=== PATIENT | male | born 1940 | race African-American/Black ===

== ENCOUNTER 2017-04-30 06:50 | Outpatient (CLI) | payer OTHER ==
[~2017-04-30] VITALS: Ht 172.7 cm; Wt 82.6 kg
[2017-04-30] VITALS (12 sets, daily range): BP systolic 119–161; BP diastolic 68–84
[2017-04-30 07:30] LABS: HEMATOCRIT 38.8 % (39.0-53.0); HEMOGLOBIN 12.7 g/dL (13.0-17.5); RED BLOOD COUNT 4.06 x10^6/uL (4.30-5.70); RED CELL DISTRIBUTION WIDTH 13.5 % (11.5-14.5); WHITE BLOOD COUNT 5.8 x10^3/uL (4.0-11.0)
[2017-04-30] MEDS ORDERED: IV NORMAL SALINE 1000ML BAG 1,000 ML IV SCH (07:30)
[2017-04-30] MEDS ORDERED: GLIP10TA13 PO (07:33)
[2017-04-30] MEDS ORDERED: ASCO500T2 PO (07:33)
[2017-04-30] MEDS ORDERED: METO-269 PO (07:33)
[2017-04-30] MEDS ORDERED: INSU100I13 SQ (07:33)
[2017-04-30] MEDS ORDERED: CHOL100014 PO (07:33)
[2017-04-30] MEDS ORDERED: INSU100C4 SQ (07:33)
[2017-04-30] MEDS ORDERED: AMLO5TAB2 PO (07:33)
[2017-04-30] MEDS ORDERED: ATORVASTATIN CA80 MG PO (07:33)
[2017-04-30] MEDS ORDERED: ALLO100T PO (07:33)
[2017-04-30] MEDS ORDERED: LISI1TAB5 PO (07:33)
[2017-04-30] MEDS ORDERED: ASPI81TA50 PO (07:33)
[2017-04-30 07:39] LABS: CALCIUM 9.3 mg/dL (8.5-10.1); CREATININE 1.9 mg/dL (0.7-1.3); GFR 41.7; POTASSIUM 5.1 mmol/L (3.5-5.1)
[2017-04-30 07:46] LABS: INR 1.1 (0.8-1.1); PROTHROMBIN TIME PATIENT 13.4 SEC (11.7-14.0)
[2017-04-30] MEDS ORDERED: LIDOCAINE 2% 20 ML VIAL. ONE (09:22)
[2017-04-30] MEDS ORDERED: IODIXANOL 320 MG/ML 100 ML VIAL. ONE (09:23)
[2017-04-30] MEDS ORDERED: fentaNYL PF VIAL 100 MCG/2 ML VIAL ONE (09:39)
[2017-04-30] MEDS ORDERED: MIDAZOLAM HCL/PF 2 MG/2 ML VIAL. ONE (09:39)
--- NOTE | 2017-04-30 09:40 | PDOC ---
MODERATE SEDATION ASSESSMENT RISKS/ALTERNATIVES Risks/Alternatives Risks and alternatives of this type of sedation and procedure discussed with: RISK/ALTERNATIVES: Patient H & P ON CHART H & P H & P on chart and reviewed for co-morbid conditions and appropriate labs. H&P ON CHART: Yes STATUS PREG STATUS ASSESSED: N/A MEDS/ALLERGIES REVIEWED Meds/Allergies Reviewed Medications and Allergies including time and route of recently administered narcotics and sedatives. MEDS/ALLERGIES REVIEWED: Yes ASA RATING ASA RATING: II AIRWAY ASSESSMENT Airway Assessment Airway patency, oral function limitations, presence of caps, crowns, dentures, partials, and ability to extend neck assessed. AIRWAY ASSESSMENT: Yes MALLAMPATI SCORE MALLAMPATI SCORE: II PRE-SEDATION ASSESSMENT PRE-SEDATION ASSESSMENT: Yes JEWEL SHARIF MD Apr 30, 2017 09:40
[2017-04-30] MEDS ORDERED: IODIXANOL 320 MG/ML 100 ML VIAL. IART ONE (09:45)
[2017-04-30] MEDS ORDERED: fentaNYL PF VIAL 100 MCG/2 ML VIAL IV ONE (09:45)
[2017-04-30] MEDS ORDERED: MIDAZOLAM HCL/PF 2 MG/2 ML VIAL. IV ONE (09:45)
[2017-04-30] MEDS ORDERED: LIDOCAINE 2% 20 ML VIAL. IJ ONE (09:45)
[2017-04-30] MEDS ORDERED: CONTRAST GIVEN MC PRN (10:00)
[2017-04-30] MEDS ORDERED: CLOPIDOGREL BISULFATE 75 MG TABLET ONE (10:21)
[2017-04-30] MEDS ORDERED: CLOPIDOGREL BISULFATE 75 MG TABLET PO ONE (10:30)
[2017-04-30] MEDS ORDERED: CLOP75TA57 PO (13:46)
[2017-04-30] MEDS ORDERED: RANO500T2 PO (13:46)
--- NOTE | 2017-05-01 09:57 | CARD ---
APPROVED REPORT Procedure(s) performed: MODERATE SEDATION: 60 MIN HISTORY The patient is a 76 year-old male with a history of : previous CHF, previous CABG (The CABG date was ). INDICATION The indication(s) include : positive stress test. PROCEDURE NARRATIVE The patient was brought electively to the cardiac catheterization lab. A timeout was performed confi rming the patient's name, date of , procedure, and site of procedure. All necessary personnel w ere wearing the appropriate protective equipment and radiation monitor devices. After explaining the risks and benefits of the procedure and alternatives, informed consent was obtained. (See nursing no rainer for medications administered). The right groin was sterilely prepped and draped in the usual fas hion. The right groin was infiltrated with 20 mL of 2% lidocaine for subcutaneous anesthesia. A 6 F sheath was inserted into the right femoral artery without difficulty via the modified seldinger techn ique with an 18G needle and a J-tipped guidewire. Hemostasis was achieved with an Angioseal device. HEMODYNAMICS: LVEDP 12 mm Hg AO: 150/70 *No gradient on LV to aortic pullback. LEFT VENTRICULOGRAM: Deferred due to renal insufficiency. CORONARY ANGIOGRAPHY: LM is a large caliber vessel with mild ectasia. LAD is a large caliber vessel with mild diffuse disease, with focal mid calcified 60% and 70% stenose s, and apical to distal 70% stenoses. D1/D2 are small caliber vessels with severe diffuse disease. LCx is a moderate caliber non-dominant vessel with a mid 90% stenosis. Ramus, OM1 and LPL1 are small caliber vessels that fills via a sequential vein graft and are subtotal ly occluded proximally. No distal disease is seen. RCA is a moderate caliber dominant vessel with severe diffuse proximal 70% stenosis with extensive to rtuousity. The distal vessel is small in caliber with an ostial 90% PDA stenosis. BYPASS ANGIOGRAPHY: [place] - Atretic and occluded distally SVG sequential to Ramus/OM1/LPL - Widely patent in the ostium and mid body, the sequential graft from OM1 to LPL1 has a proximal 80% stenosis. SVG to RCA is not visualized. Conclusion 1. Severe three vessel tunica-biloxi coronary disease, not easily amenable to PCI 2. 3/6 grafts occluded. Recommendations Will do trial of Renexa and then determine if he still has symptoms, at which point, PCI of the vein graft and LAD could be pursued in a staged fashion due to his renal insufficiency.
== END 2017-04-30 14:50 | disposition home or self-care (01) ==
LOC: CCL 06:50
PROVIDERS: ATTEND Internal Medicine Cardiovascular Disease
DX: I25.10 Atherosclerotic heart disease of native coronary artery without angina pectoris (principal); I13.0 Hypertensive heart and chronic kidney disease with heart failure and stage 1 through stage 4 chronic kidney disease, or unspecified chronic kidney disease; E11.22 Type 2 diabetes mellitus with diabetic chronic kidney disease; N18.9 Chronic kidney disease, unspecified; I50.9 Heart failure, unspecified; E78.00 Pure hypercholesterolemia, unspecified; D64.9 Anemia, unspecified; Z86.39 Personal history of other endocrine, nutritional and metabolic disease
CPT/HCPCS: 36415; 80048; 85027; 85610; 85730; 93459; 99152; 99153; C1769; C1771; C1892; J1644; J2250; J3010; J7030; G0269; J2001